=== PATIENT | female | born 1995 | race African-American/Black ===

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

== ENCOUNTER 2017-04-22 17:01 | Emergency (ER) | payer BC ==
[~2017-04-22] VITALS: Ht 157.5 cm; Wt 65.9 kg
[~2017-04-22 17:01] MED LIST changes: +PROAIR HFA0.09 MG/AC IH
[2017-04-22 17:12] VITALS: BP 128/75; TEMP 98.3
[2017-04-22] MEDS ORDERED: RT ADVAIR 128 DISKUS IH (17:15)
[2017-04-22] MEDS ORDERED: PROAIR HFA0.09 MG/AC IH (17:15)
[2017-04-22] MEDS ORDERED: ZYRTEC5 MG PO (17:15)
[2017-04-22 18:10] LABS: INFLUENZA A NEGATIVE; INFLUENZA B NEGATIVE
[2017-04-22] MEDS ORDERED: ZOFRAN ODT4 MG PO (18:48)
[2017-04-22 18:57] VITALS: PULSE 94
== END 2017-04-22 18:58 | disposition home or self-care (01) ==
LOC: COL.ER 17:01
PROVIDERS: Nurse Practitioner
DX: J11.1 Influenza due to unidentified influenza virus with other respiratory manifestations (principal); J45.909 Unspecified asthma, uncomplicated

== ENCOUNTER 2017-05-11 10:32 | Emergency (ER) | payer BC ==
[~2017-05-11] VITALS: Ht 157.5 cm; Wt 65.9 kg
[~2017-05-11 10:32] MED LIST changes: +RT ADVAIR 128 DISKUS IH; +ZOFRAN ODT4 MG PO; +ZYRTEC5 MG PO
[2017-05-11 10:39] VITALS: BP 114/62; PULSE 91; TEMP 98.4
[2017-05-11] MEDS ORDERED: SINGULAIR 110 MG/TAB PO (10:41)
[2017-05-11 12:03] LABS: COLLECTION METHOD CLEAN CATCH
[2017-05-11 12:10] LABS: MUCOUS Present /lpf; PH 7 (5-8); SQUAMOUS EPITHELIAL 0-2 /hpf; URINE APPEARANCE Clear; URINE BACTERIA None Seen /hpf; URINE BILIRUBIN Negative (NEGATIVE); URINE BLOOD Negative (NEGATIVE); URINE COLOR Yellow; URINE GLUCOSE Negative (NEGATIVE); URINE KETONE Trace (NEGATIVE); URINE LEUKOCYTE ESTERASE Negative (NEGATIVE); URINE NITRATE Negative (NEGATIVE); URINE PROTEIN(semi-quant) Negative (NEGATIVE); URINE RBC 0-2 /hpf
== END 2017-05-11 12:54 | disposition home or self-care (01) ==
LOC: COL.ER 10:32
PROVIDERS: Physician Assistant
DX: O26.899 Other specified pregnancy related conditions, unspecified trimester (principal); R10.2 Pelvic and perineal pain; J45.909 Unspecified asthma, uncomplicated; Z3A.00 Weeks of gestation of pregnancy not specified

== ENCOUNTER 2017-05-20 11:27 | Emergency (ER) | payer BC ==
[~2017-05-20] VITALS: Ht 157.5 cm; Wt 65.9 kg
[2017-05-20 11:29] VITALS: BP 106/57; PULSE 102; TEMP 97.7
== END 2017-05-20 12:00 | disposition left against medical advice (07) ==
LOC: COL.ER 11:27
DX: O26.811 Pregnancy related exhaustion and fatigue, first trimester (principal); Z3A.01 Less than 8 weeks gestation of pregnancy

== ENCOUNTER 2017-07-09 08:11 | Emergency (ER) | payer BC ==
[~2017-07-09] VITALS: Ht 160 cm; Wt 66.8 kg
[2017-07-09 08:19] VITALS: BP 129/61; TEMP 98.8
[2017-07-09] MEDS ORDERED: PRENATAL PO (08:23)
[2017-07-09] MEDS ORDERED: NAUSEA MED PO (08:24)
[2017-07-09] MEDS ORDERED: DICLEGIS PO (08:32)
[2017-07-09] MEDS ORDERED: PHENERGAN 25 TA25 MG PO (08:49)
[2017-07-09 09:13] LABS: COLLECTION METHOD CLEAN CATCH
[2017-07-09 09:21] LABS: MUCOUS Present /lpf; PH 6 (5-8); URINE APPEARANCE Cloudy; URINE BACTERIA Rare /hpf; URINE BILIRUBIN Negative (NEGATIVE); URINE BLOOD Negative (NEGATIVE); URINE COLOR Yellow; URINE GLUCOSE Negative (NEGATIVE); URINE KETONE 2+ (NEGATIVE); URINE LEUKOCYTE ESTERASE 2+ (NEGATIVE); URINE NITRATE Negative (NEGATIVE); URINE PROTEIN(semi-quant) 1+ (NEGATIVE)
[2017-07-09] MEDS ORDERED: CEPHALEXIN500 M1 PO (09:35)
[2017-07-09] MEDS ORDERED: PHENERGAN25 MG RC (09:49)
[2017-07-09 10:45] VITALS: PULSE 100
== END 2017-07-09 10:48 | disposition home or self-care (01) ==
LOC: COL.ER 08:11
PROVIDERS: Emergency Medicine
DX: O26.891 Other specified pregnancy related conditions, first trimester (principal); R82.71 Bacteriuria; O99.511 Diseases of the respiratory system complicating pregnancy, first trimester; J06.9 Acute upper respiratory infection, unspecified; O21.9 Vomiting of pregnancy, unspecified; Z3A.13 13 weeks gestation of pregnancy
CPT/HCPCS: J1200; J2405; J2550; J7030

== ENCOUNTER 2017-09-02 13:42 | Emergency (ER) | payer BC ==
[~2017-09-02] VITALS: Ht 157.5 cm; Wt 67.3 kg
[~2017-09-02 13:42] MED LIST changes: +CEPHALEXIN500 M1 PO; +DICLEGIS PO; +NAUSEA MED PO; +PHENERGAN 25 TA25 MG PO; +PHENERGAN25 MG RC; +PRENATAL PO
[2017-09-02 13:48] VITALS: TEMP 97.8
[2017-09-02 14:26] VITALS: BP 114/70; PULSE 97
== END 2017-09-02 14:32 | disposition home or self-care (01) ==
LOC: COL.ER 13:42
DX: J00 Acute nasopharyngitis [common cold] (principal); J45.909 Unspecified asthma, uncomplicated

== ENCOUNTER → 2017-11-11 | Outpatient (CLI) | payer BC ==
[~2017-11-11] VITALS: Ht 160 cm; Wt 75.5 kg
[~2017-11-11] MED LIST changes: +PRENATAL1 TA7 PO
[2017-11-11 20:23] VITALS: BP 110/68; PULSE 94; TEMP 98
[2017-11-11 20:45] VITALS: BP 117/75; PULSE 95
== END ==
LOC: LDRO 19:45
DX: O99.89 Other specified diseases and conditions complicating pregnancy, childbirth and the puerperium (principal); R10.9 Unspecified abdominal pain; W54.1XXA Struck by dog, initial encounter; Z3A.31 31 weeks gestation of pregnancy

== ENCOUNTER 2017-12-25 12:47 | Outpatient (CLI) | payer OTHER, BC ==
[~2017-12-25] VITALS: Ht 160 cm; Wt 84.1 kg
[2017-12-25 12:59] VITALS: BP 117/76; PULSE 106; TEMP 97.9
[2017-12-25 14:10] VITALS: BP 119/75; PULSE 88
[2017-12-25 15:01] LABS: TRICYCLIC ANTIDEPRESS URINE NEGATIVE
== END 2017-12-25 14:20 | disposition home or self-care (01) ==
LOC: LDRO 12:47
PROVIDERS: Obstetrics & Gynecology
DX: O62.9 Abnormality of forces of labor, unspecified (principal); Z3A.37 37 weeks gestation of pregnancy

== ENCOUNTER 2017-12-29 06:39 | Outpatient (CLI) | payer OTHER, BC ==
[~2017-12-29] VITALS: Ht 160 cm; Wt 81.8 kg
[2017-12-29 06:51] VITALS: BP 120/75; PULSE 92; TEMP 98.1
== END 2017-12-29 08:25 | disposition home or self-care (01) ==
LOC: LDRO 06:39
DX: O62.9 Abnormality of forces of labor, unspecified (principal); Z3A.38 38 weeks gestation of pregnancy

== ENCOUNTER 2018-01-07 13:58 | Outpatient (CLI) | payer OTHER, BC ==
[~2018-01-07] VITALS: Ht 160 cm; Wt 82.3 kg
[2018-01-07 14:31] VITALS: BP 123/74; PULSE 107; TEMP 98.4
== END 2018-01-07 14:35 | disposition home or self-care (01) ==
LOC: LDRO 13:58 → LDR 14:05 → LDRO 14:35
DX: Z34.93 Encounter for supervision of normal pregnancy, unspecified, third trimester (principal); Z3A.39 39 weeks gestation of pregnancy
CPT/HCPCS: OP

== ENCOUNTER 2018-01-12 01:37 | Outpatient (CLI) | payer OTHER, BC ==
[~2018-01-12] VITALS: Ht 160 cm; Wt 82.7 kg
[2018-01-12 02:00] VITALS: BP 117/72; PULSE 106; TEMP 98
[2018-01-13] MEDS ORDERED: PERCOCET 325 MG1 TA2 PO (06:06)
[2018-01-13] MEDS ORDERED: IBU600 MG PO (06:06)
== END 2018-01-12 03:45 | disposition home or self-care (01) ==
LOC: LDRO 01:37 → LDR 01:37 → LDRO 03:45 → EDSTATUS 05:36 → LDR 06:49
DX: Z34.03 Encounter for supervision of normal first pregnancy, third trimester (principal); Z3A.40 40 weeks gestation of pregnancy

== ENCOUNTER 2018-01-12 09:31 | Inpatient (IN) | payer BC, OTHER ==
[~2018-01-12] VITALS: Ht 160 cm; Wt 82.3 kg
[2018-01-12] VITALS (50 sets, daily range): BP systolic 105–154; BP diastolic 56–96; PULSE 76–116; TEMP 97.2–98.3
[2018-01-12 11:21] LABS: BASO % 0.2 % (0.0-2.0); EOS # 0.1 (0.0-0.7); EOS % 0.9 % (0-4.0); GRAN # 12.2 (1.4-6.5); GRAN % 82.1 % (42.2-75.2); HEMATOCRIT 34.3 % (35.0-45.0); HEMOGLOBIN 11.3 g/dl (12.0-15.0); LYMPH # 1.4 (1.2-3.4); LYMPH % 9.1 % (20.0-51.0); MEAN CELL VOLUME 84 fl (80.0-95.0); MEAN CORPUSCULAR HEMOGLOBIN 28 pg (26.0-32.0); MEAN CORPUSCULAR HGB CONC 33 g/dl (33.0-37.0); MONO # 1.1 (0.1-0.6); MONO % 7.2 % (1.7-9.3); PLATELET COUNT 309 K/mm3 (130-400); RED BLOOD COUNT 4.08 M/mm3 (4.10-5.30); REDCELL DISTRIBUTION WIDTH-CV 13.3 % (11.5-14.5)
[2018-01-12 12:41] LABS: TRICYCLIC ANTIDEPRESS URINE NEGATIVE
[2018-01-13 01:45] VITALS: BP 144/84; PULSE 111; TEMP 97.9
[2018-01-13] MEDS ORDERED: PERCOCET 325 MG1 TA2 PO (06:06)
[2018-01-13] MEDS ORDERED: IBU600 MG PO (06:06)
[2018-01-13 06:20] VITALS: BP 114/61; PULSE 95; TEMP 98.3
[2018-01-13 12:30] VITALS: BP 128/60; PULSE 97; TEMP 98.9
[2018-01-13 16:20] VITALS: BP 114/58; PULSE 87; TEMP 98
[2018-01-13 20:45] VITALS: BP 125/83; PULSE 83; TEMP 98.6
[2018-01-14 08:11] VITALS: BP 126/69; PULSE 93; TEMP 97.9
== END 2018-01-14 14:45 | disposition home or self-care (01) | DRG 807 ==
LOC: LDRO 09:31 → OB 10:00 → LDR 10:00 → OB 01-13
PROVIDERS: Obstetrics & Gynecology
PROC: 10E0XZZ Delivery of Products of Conception, External Approach (ICD-10-PCS; principal; 2018-01-12)
PROC: 0KQM0ZZ Repair Perineum Muscle, Open Approach (ICD-10-PCS; 2018-01-12)
DX: O99.344 Other mental disorders complicating childbirth (principal); Z37.0 Single live birth; F41.8 Other specified anxiety disorders; Z3A.40 40 weeks gestation of pregnancy; O70.1 Second degree perineal laceration during delivery; Z23 Encounter for immunization; O99.334 Smoking (tobacco) complicating childbirth; O62.2 Other uterine inertia; F12.10 Cannabis abuse, uncomplicated; J45.909 Unspecified asthma, uncomplicated
CPT/HCPCS: J2210; J2405; J2590; J7120

== ENCOUNTER 2018-05-18 10:46 | Emergency (ER) | payer OTHER ==
[~2018-05-18] VITALS: Ht 162.6 cm; Wt 76.6 kg
[~2018-05-18 10:46] MED LIST changes: +IBU600 MG PO; +PERCOCET 325 MG1 TA2 PO
[2018-05-18 10:54] VITALS: BP 127/68
[2018-05-18] MEDS ORDERED: MUCINEX 60600 MG/TA1 PO (11:05)
[2018-05-18] MEDS ORDERED: [UNRECOGNIZED DRUG - OTHER] PO (11:05)
[2018-05-18 13:15] VITALS: PULSE 87; TEMP 98
== END 2018-05-18 13:16 | disposition home or self-care (01) ==
LOC: COL.ER 10:46
DX: J06.9 Acute upper respiratory infection, unspecified (principal); F17.210 Nicotine dependence, cigarettes, uncomplicated

== ENCOUNTER 2019-03-09 11:38 | Inpatient (IN) | payer MEDICAID ==
[~2019-03-09] VITALS: Ht 160 cm; Wt 91.8 kg
[~2019-03-09 11:38] MED LIST changes: +MUCINEX 60600 MG/TA1 PO; +[UNRECOGNIZED DRUG - OTHER] PO
[2019-03-16] VITALS (40 sets, daily range): BP systolic 95–143; BP diastolic 52–92; PULSE 85–117; TEMP 97.4–98.7
--- NOTE | 2019-03-16 07:39 | NUR ---
Patient arrives to unit with significant other for scheduled induction. Patient changes into gown, clean catch UA obtained per patient history of drug use, EFM explained and placed, vital signs obtained. Patient denies contractions, ROM, vaginal bleeding, and reports normal movement. Plan of care reviewed, patient denies questions regarding induction. 0800 - IV started, labs obtained, LR infusing per protocol. Assessment completed, consents explained and signed. Denies questions. 0825 - Reactive FHR obtained. Pitocin administration reviewed, patient denies questions. Pitocin started at 2mu/ml/hr per protocol. Will monitor per protocol.
[2019-03-16] MEDS ORDERED: PRENATAL TABLET PO (08:06)
[2019-03-16] MEDS ORDERED: TYLENOL PM EXTR1 TA1 PO (08:08)
[2019-03-16 08:25] LABS: BASO % 0.3 % (0.0-2.0); EOS # 0.1 (0.0-0.7); EOS % 0.9 % (0-4.0); GRAN # 8.8 (1.4-6.5); GRAN % 74.5 % (42.2-75.2); HEMOGLOBIN 10.8 g/dl (12.5-16.0); LYMPH # 1.9 (1.2-3.4); LYMPH % 15.9 % (20.0-51.0); MEAN CELL VOLUME 82 fl (80.0-100.0); MEAN CORPUSCULAR HEMOGLOBIN 26 pg (27.0-31.0); MEAN CORPUSCULAR HGB CONC 32 g/dl (33.0-37.0); MEAN PLATELET VOLUME 12.5 fl (7.4-10.4); MONO # 0.9 (0.1-0.6); MONO % 7.7 % (1.7-9.3); PLATELET COUNT 338 K/mm3 (130-400); RED BLOOD COUNT 4.19 M/mm3 (4.10-5.30)
[2019-03-16 08:28] LABS: HEMATOCRIT 34.3 % (37.0-47.0)
[2019-03-16 08:38] LABS: TRICYCLIC ANTIDEPRESS URINE NEGATIVE
--- NOTE | 2019-03-16 15:35 | NUR ---
1535- Dr. Vidales on unit. Reviewed FHR strip. SVE by this RN . 1540- Patient repositioned RL with left leg in stirrup to promote descent. Variable deceleration noted with contraction. 1542- Patient repositioned LL with right leg in stirrup. Variable deceleration noted with contraction. 1544- Patient repositioned RL. SVE 8/100/+1. Dr. Vidales on unit, reviews FHR strip. 1605- Patient sitting upright in bed, emesis noted. 1608- SVE 9/+1. Physician remains on unit and reviews strip.
--- NOTE | 2019-03-16 16:10 | NUR ---
1610- [place] catheter removed prior to impending delivery. Pericare given. RN remains at bedside. 1625- Dr. Vidales at bedside. Patient reporting increased pressure. SVE per provider 2. Patient prepped for delivery. Nursery RN to bedside. 1628- Patient begins pushing with contractions with physician at bedside. See physician documentation. 1638- of viable female attended by Dr. Vidales. Infant to mother's abdomen, care of to Nilo Dumont RN. Apgars 8/9. 1643- Spontaneous delivery of placenta. Pitocin bolus started at 333 ml/hr/protocol. Fundal massage by RN, vaginal bleeding WNL at this time. Second degree perineal laceration repaired by physician. Patient tolerates well. Pericare given and ice pack applied. Patient updated on plan of care and safety reviewed.
--- NOTE | 2019-03-16 19:00 | NUR ---
400cc emesis undigested food, states "I just ate some burger kaden" encouraged pt to let her stomach rest and then start with some water. Antiemetic offerred, declined.
--- NOTE | 2019-03-16 19:30 | NUR ---
Up to bathroom with slightly unsteady gait, L knee 'wobbly'. Unable to void @ this time. Performs own pericare, clean gown on and transferred to new room via wheelchair boyfriend dotring at bedside.
--- NOTE | 2019-03-16 20:59 | NUR ---
Zofran 4 mg slow IV push for continued. Pt intructed to not eat or drink anything for 30minutes. Verbalizes understanding and wraps subway sandwich back up.
[2019-03-17] VITALS: BP 124/74; PULSE 98; TEMP 98.8
[2019-03-17 04:53] VITALS: BP 91/79; PULSE 97
--- NOTE | 2019-03-17 07:45 | NUR ---
Discussed with patient plan of care regarding mother positive for MJ upon admission. Informed mother at this time due to her postive UDS we will supplement with formula and avoid at this time, until pedication into room to discuss feedings with patients. mother agreeable at this time.
[2019-03-17] MEDS ORDERED: IBU600 MG PO (08:54)
[2019-03-17 09:00] VITALS: BP 108/75; PULSE 111
--- NOTE | 2019-03-17 10:23 | NUR ---
CHINMAY adams received a referral for the patient due to identified risk of presence of illegal drugs in infant. The patient had a positive UDS for cannabis on during on 08/07/18 and before delivery on 03/16/19. The patient's baby had a negative UDS. Awaiting cord results. CHINMAY adams met with the patient and the FOB, Killian Myers. Patient permission was given to speak in front of FOB. The patient has all the baby supplies she needs. and has WIC. She has another child in the home born 01/12/18. The patient goes to [place] to see Brinda and reports she does know to reach out to Brinda if she needs help dealing with drug usage. The patient has a history of depression and anxiety and is aware of signs. The patient reports she will continue seeing Brinda at [place]. CHINMAY adams informed the patient a CPS report that will be filed and that DCF would contact her. The patient reports she is familiar with the process. The patient's nurse did not have any concerns with patient's ability to care for the infant and CHINMAY adams collaborated the above information with the patient's nurse. [facility] # [id number]
--- NOTE | 2019-03-17 10:37 | NUR ---
Initial visit; Patient thanked Computer Help Desk Specialist for offering congratulations and God's blessings for the of her daughter. Computer Help Desk Specialist thanked patient for choosing [facility].
--- NOTE | 2019-03-17 14:14 | NUR ---
DCF into see patient, was in patient room for 15 minutes, DCF left without notifying nurse of any issues or concerns.
--- NOTE | 2019-03-17 15:45 | NUR ---
Ashley Jean Baptiste, CPS #[phone], met with patient this date. Ashley states they will follow patient upon discharge and await cord blood results.
[2019-03-17 16:01] VITALS: BP 136/87; PULSE 82; TEMP 98
--- NOTE | 2019-03-17 17:45 | NUR ---
Discharge instructions given, pt verbalizes understanding. No further questions noted. Bands matched and hugs tag removed. Pt states having tdap during with 14 month old, instructed she does not need one at this time. Flu vaccine given. See EMAR.
== END 2019-03-17 18:20 | disposition home or self-care (01) | DRG 807 ==
LOC: LDR 03-16 07:32 → OB 03-16 07:32 → LDR 03-16 11:37 → OB 03-16 19:30
PROVIDERS: ADMIT Obstetrics & Gynecology
PROC: 0KQM0ZZ Repair Perineum Muscle, Open Approach (ICD-10-PCS; principal; 2019-03-16)
PROC: 10E0XZZ Delivery of Products of Conception, External Approach (ICD-10-PCS; 2019-03-16)
PROC: 10907ZC Drainage of Amniotic Fluid, Therapeutic from Products of Conception, Via Natural or Artificial Opening (ICD-10-PCS; 2019-03-16)
PROC: 3E033VJ Introduction of Other Hormone into Peripheral Vein, Percutaneous Approach (ICD-10-PCS; 2019-03-16)
DX: O99.52 Diseases of the respiratory system complicating childbirth (principal); Z37.0 Single live birth; J45.909 Unspecified asthma, uncomplicated; O77.0 Labor and delivery complicated by meconium in amniotic fluid; O99.323 Drug use complicating pregnancy, third trimester; O70.1 Second degree perineal laceration during delivery; F12.90 Cannabis use, unspecified, uncomplicated; Z3A.39 39 weeks gestation of pregnancy; Z23 Encounter for immunization
CPT/HCPCS: J2405; J2590; J7120

== ENCOUNTER 2019-12-28 10:03 | Emergency (ER) | payer MEDICAID ==
[~2019-12-28] VITALS: Ht 160 cm; Wt 81.8 kg
[~2019-12-28 10:03] MED LIST changes: +PRENATAL TABLET PO; +TYLENOL PM EXTR1 TA1 PO
[2019-12-28 10:27] VITALS: TEMP 97.3
[2019-12-28] MEDS ORDERED: AMOXICILLIN 50500 MG PO (11:54)
[2019-12-28 12:05] VITALS: BP 115/80; PULSE 83
== END 2019-12-28 12:08 | disposition home or self-care (01) ==
LOC: COL.ER 10:03
DX: R22.0 Localized swelling, mass and lump, head (principal); Z98.818 Other dental procedure status; Z79.1 Long term (current) use of non-steroidal anti-inflammatories (NSAID)

== ENCOUNTER 2020-02-18 06:50 | Emergency (ER) | payer MEDICAID ==
[~2020-02-18] VITALS: Ht 160 cm; Wt 75.0 kg
[~2020-02-18 06:50] MED LIST changes: +AMOXICILLIN 50500 MG PO
[2020-02-18 06:56] VITALS: BP 133/78; PULSE 101; TEMP 99.2
== END 2020-02-18 08:45 | disposition left against medical advice (07) ==
LOC: COL.ER 06:50
DX: R53.81 Other malaise (principal); R51.9 Headache, unspecified; Z53.29 Procedure and treatment not carried out because of patient's decision for other reasons

== ENCOUNTER 2021-01-28 06:52 | Emergency (ER) | payer MEDICAID ==
[~2021-01-28] VITALS: Ht 157.5 cm; Wt 84.1 kg
[2021-01-28 06:57] VITALS: BP 113/42; TEMP 97.8
[2021-01-28 07:42] VITALS: PULSE 85
== END 2021-01-28 07:42 | disposition home or self-care (01) ==
LOC: COL.ER 06:52
DX: H61.21 Impacted cerumen, right ear (principal); J45.909 Unspecified asthma, uncomplicated

== ENCOUNTER 2023-04-23 11:38 | Outpatient (CLI) | payer MEDICAID ==
[~2023-04-23] VITALS: Ht 160 cm; Wt 89.1 kg
[~2023-04-23 11:38] MED LIST changes: +IBU800 M1 PO; +ROXICODONE 55 MG/TAB PO
--- NOTE | 2023-04-23 11:45 | NUR ---
Pt arrived on unit ambulatory and with concerns for leaking fluid around 1045 this morning and feeling some back pain. Pt denies any regular contractions or vaginal bleeding and reports normal movement. EFM and toco monitors started. Vital signs WNL. SVE by this RN FT/50/-3 with negative amniotrace and no fluid noted on exam glove. Dr. Mirza notified.
[2023-04-23] MEDS ORDERED: PRENATAL (12:11)
[2023-04-23 12:15] VITALS: BP 133/80; PULSE 94; TEMP 98.1
[2023-04-23 12:46] LABS: COLLECTION METHOD CLEAN CATCH
[2023-04-23 13:02] LABS: URINE APPEARANCE Clear (CLEAR/HAZY); URINE COLOR Yellow (YELLOW)
[2023-04-23 13:03] LABS: URINE BACTERIA Occasional /hpf (NONE SEEN); URINE BLOOD Negative (NEGATIVE); URINE GLUCOSE Negative (NEGATIVE); URINE KETONE 1+ (NEGATIVE); URINE NITRATE Negative (NEGATIVE); URINE PROTEIN(semi-quant) Negative (NEGATIVE)
[2023-04-23 13:04] LABS: URINE RBC 0-2 /hpf (0-2)
--- NOTE | 2023-04-23 13:20 | NUR ---
Discharge instructions, follow up care, labor precautions and the need for antibiotics all reviewed with the pt. Pt verbalized an understanding, agreed with the plan and states no questions or concerns at this time.
== END 2023-04-23 13:20 | disposition home or self-care (01) ==
LOC: LDRO 11:38
PROVIDERS: Student in an Organized Health Care Education/Training Program
DX: O42.913 Preterm premature rupture of membranes, unspecified as to length of time between rupture and onset of labor, third trimester (principal); Z3A.35 35 weeks gestation of pregnancy

== ENCOUNTER 2023-05-03 18:56 | Inpatient (IN) | payer MEDICAID ==
[~2023-05-03] VITALS: Ht 161.3 cm; Wt 94.1 kg
[2023-05-03] VITALS (15 sets, daily range): BP systolic 85–151; BP diastolic 52–113; PULSE 86–105; TEMP 98–98.7
[~2023-05-03 18:56] MED LIST changes: +PRENATAL
--- NOTE | 2023-05-03 19:10 | NUR ---
27 YO @ 37+2 PRESENTS OF OBT WITH COMPLAINT OF ROM @[address] PIERCE. PT ARRIVED VIA WHEEL CHAIR ACCOMPANIED BY SIG OTHER AND STAFF. PT STATES BEGAN LEAKING CLEAR FLUID AT 1835. STATES HAS NOW SOAKED UNDERWEAR, BATH TOWEL, AND CONTINUES TO LEAK. PT DENIES VAG BLEEDING. PT ENDORSES MOVEMENT. PT HAS HX OF C-SEC X1 W/ G3 . PT HAS PLANNED REPEAT C-SEC FOR THIS . PT CHANGED INTO GOWN, PLACED ON EFM X2, AMNISURE SWAB COMPLETED BY RN: POSITIVE RESULTS, AND SVE BY RN /3. PER RECORDS GBS COLLECTED 05/02/23 RESULTS STILL PENDING.
[2023-05-03] MEDS ORDERED: LR 1,000 ML IV PRN ×2 (19:15→21:45)
[2023-05-03] MEDS ORDERED: TYLENOL 325MG325 MG PO (19:37)
[2023-05-03] MEDS ORDERED: NS 20 ML IV ONE (20:26)
[2023-05-03] MEDS ORDERED: Ondansetron 4 MG/2 ML VIAL ONE (20:26)
[2023-05-03] MEDS ORDERED: LR 1,000 ML IV SCH (20:30)
[2023-05-03] MEDS ORDERED: Azithromycin 500 MG in NS 250 ML IV ONE (20:30)
[2023-05-03 20:32] LABS: BASO # 0.1 K/mm3 (0.0-0.2); BASO % 0.3 % (0.0-2.0); EOS # 0.1 K/mm3 (0.0-0.7); EOS % 0.7 % (0.0-4.0); GRAN # 11.9 K/mm3 (1.4-6.5); GRAN % 79.8 % (42.2-75.2); HEMOGLOBIN 11.6 g/dl (12.5-16.0); LYMPH # 1.9 K/mm3 (1.2-3.4); LYMPH % 12.9 % (20.0-51.0); MEAN CELL VOLUME 84 fl (80.0-100.0); MEAN CORPUSCULAR HEMOGLOBIN 28 pg (27-31); MEAN CORPUSCULAR HGB CONC 34 g/dl (33.0-37.0); MEAN PLATELET VOLUME 12.5 fl (7.4-10.4); MONO # 0.8 K/mm3 (0.1-0.6); MONO % 5.6 % (1.7-9.3); PLATELET COUNT 299 K/mm3 (130-400); RED BLOOD COUNT 4.13 M/mm3 (4.10-5.30); REDCELL DISTRIBUTION WIDTH-CV 13.6 % (11.5-14.5)
--- NOTE | 2023-05-03 20:37 | NUR ---
PT AMBULATED TO OR ACCOMPANIED BY SIG OTHER AND NURSING STAFF X2. PT PLACED ON OR TABLE IN SITTING POSITION TO FACILITATE SPINAL PLACEMENT BY ANES.
[2023-05-03 20:39] LABS: HEMATOCRIT 34.5 % (37.0-47.0)
[2023-05-03 20:47] LABS: TRICYCLIC ANTIDEPRESS URINE NEGATIVE (NEGATIVE)
[2023-05-03] MEDS ORDERED: EPINEPHrine 1 MG/1 ML Ampule ONE (20:52)
[2023-05-03] MEDS ORDERED: Phenylephrine 10 MG/ML VIAL ONE (20:52)
[2023-05-03] MEDS ORDERED: Oxytocin 10 UNITS/ML VIAL ONE ×2 (20:52→21:12)
[2023-05-03] MEDS ORDERED: Ketorolac 60 MG/2 ML VIAL IM ONE (20:52)
[2023-05-03] MEDS ORDERED: fentaNYL 50 MCG/ML 5 ML VIAL ONE (20:56)
[2023-05-03] MEDS ORDERED: Meperidine 50 MG/ML 1 ML VIAL ONE (20:57)
[2023-05-03] MEDS ORDERED: traZODone 50 MG TAB PO PRN (21:00)
[2023-05-03] MEDS ORDERED: LR 1,000 ML IV ONE (21:15)
[2023-05-03] MEDS ORDERED: oxyCODONE 5 MG TAB PO PRN (21:45)
[2023-05-03] MEDS ORDERED: Morphine 4 MG/ML VIAL IV PRN (21:45)
[2023-05-03] MEDS ORDERED: Loratadine 10 MG TAB PO PRN (21:45)
[2023-05-03] MEDS ORDERED: Magnes Hydrox (MOM) 80 MG/ML 30 ML CUP PO PRN (21:45)
[2023-05-03] MEDS ORDERED: Measles/Mumps/Rubella Virus Vaccine Live w Diluent 0.5 ML VIAL SQ SCH (21:45)
[2023-05-03] MEDS ORDERED: Acetaminophen 500 MG TAB PO SCH (21:45)
[2023-05-03] MEDS ORDERED: Naloxone 0.4 MG/ML VIAL IV PRN (21:45)
[2023-05-03] MEDS ORDERED: Ondansetron 4 MG/2 ML VIAL IV PRN (21:45)
--- NOTE | 2023-05-03 22:30 | NUR ---
PT SHIVERING. PT STATES SHE DOES NOT FEEL COLD. BP DIFFICULTY READING R/T SHIVERING. X2 ATTEMPTS BEFORE READING OBTAINED.
[2023-05-04] VITALS (7 sets, daily range): BP systolic 107–124; BP diastolic 53–70; PULSE 73–87; TEMP 97.8
[2023-05-04] MEDS ORDERED: Ibuprofen 600 MG TAB PO SCH (03:30)
[2023-05-04] MEDS ORDERED: Sennosides/Docusate 8.6-50 MG TAB PO SCH (08:00)
[2023-05-04] MEDS ORDERED: Influenza Virus Vaccine, Quad '23-24 (6 MOS+) 0.5 ML SYRINGE IM SCH ×2 (09:00)
[2023-05-04] MEDS ORDERED: IBU600 MG PO (13:50)
--- NOTE | 2023-05-05 10:15 | NUR ---
Initial visit attempt; Family resting, Professor Of Exercise Science left card offering congratulations and God's Blessings for the of their daughter and information regarding the availability of spiritual care at our hospital.
[2023-05-05 10:48] VITALS: BP 123/80; PULSE 93; TEMP 98.1
--- NOTE | 2023-05-05 16:00 | NUR ---
1555- DISCHARGE INSTRUCTIONS REVIEWED, QUESTIONS ASKED AND ANSWERED. 1600- PATIENT AMBULATORY OFF UNIT WITH LAINA JOAQUIN.
--- NOTE | 2023-05-08 10:19 | NUR ---
conversion worker completed two DCF reports due to positive for cannabinoids. Intake ID: [id number] and [id number] See baby's note under [facility]
== END 2023-05-05 16:00 | disposition home or self-care (01) | DRG 787 ==
LOC: LDRO 18:56 → OB 19:10 → LDR 19:10 → OB 22:15
PROVIDERS: ADMIT Obstetrics & Gynecology
PROC: 10D00Z1 Extraction of Products of Conception, Low, Open Approach (ICD-10-PCS; principal; 2023-05-03)
DX: O34.211 Maternal care for low transverse scar from previous cesarean delivery (principal); O98.313 Other infections with a predominantly sexual mode of transmission complicating pregnancy, third trimester; O99.324 Drug use complicating childbirth; Z3A.37 37 weeks gestation of pregnancy; O99.52 Diseases of the respiratory system complicating childbirth; J45.909 Unspecified asthma, uncomplicated; O99.344 Other mental disorders complicating childbirth; F41.9 Anxiety disorder, unspecified; F32.A Depression, unspecified; F12.90 Cannabis use, unspecified, uncomplicated; O69.81X0 Labor and delivery complicated by cord around neck, without compression, not applicable or unspecified; Z37.0 Single live birth
CPT/HCPCS: J0171; J0456; J0665; J0690; J1885; J2175; J2371; J2405; J2590; J3010; J7050; J7120